=== PATIENT | male | born 1975 | race Caucasian/White ===

== ENCOUNTER 2017-04-04 14:11 | Emergency (ER) | payer OTHER ==
[~2017-04-04] VITALS: Ht 172.7 cm; Wt 92.5 kg
== END 2017-04-04 20:24 | disposition home or self-care (01) ==
LOC: ER 14:11
DX: S01.80XA Unspecified open wound of other part of head, initial encounter (principal); S19.9XXA Unspecified injury of neck, initial encounter; Y24.0XXA Airgun discharge, undetermined intent, initial encounter; Y93.01 Activity, walking, marching and hiking; Y92.488 Other paved roadways as the place of occurrence of the external cause; Y99.8 Other external cause status